=== PATIENT | male | born 1965 | race Caucasian/White ===

== ENCOUNTER 2016-08-19 08:34 | Emergency (ER) | payer SELFPAY ==
[~2016-08-19] VITALS: Ht 172.7 cm; Wt 70.0 kg
[~2016-08-19 08:34] MED LIST: FLEXERIL PO; NAPROSYN500 MG PO
[2016-08-19] MEDS ORDERED: MOTRIN800 MG PO (09:10)
[2016-08-19] MEDS ORDERED: LORTAB 5-325 MG1 TAB PO (09:10)
[2016-08-19] MEDS ORDERED: PENICILLN VK500 MG PO (09:10)
[2016-08-19 09:14] VITALS: BP 151/96
== END 2016-08-19 09:18 | disposition home or self-care (01) | DRG 159 ==
LOC: ED 08:34
DX: K08.89 Other specified disorders of teeth and supporting structures (principal); K02.9 Dental caries, unspecified; S02.5XXA Fracture of tooth (traumatic), initial encounter for closed fracture

== ENCOUNTER 2016-11-23 08:43 | Emergency (ER) | payer OTHER ==
[~2016-11-23] VITALS: Ht 172.7 cm; Wt 72.0 kg
[~2016-11-23 08:43] MED LIST changes: +LORTAB 5-325 MG1 TAB PO; +MOTRIN800 MG PO; +PENICILLN VK500 MG PO
[2016-11-23 09:26] VITALS: BP 149/78
[2016-11-23] MEDS ORDERED: PENICILLN VK500 MG PO (09:31)
[2016-11-23] MEDS ORDERED: LORTAB 5-325 MG1 TAB PO (09:31)
== END 2016-11-23 09:39 | disposition home or self-care (01) | DRG 159 ==
LOC: ED 08:43
DX: K08.89 Other specified disorders of teeth and supporting structures (principal)

== ENCOUNTER 2017-02-08 20:51 | Emergency (ER) | payer OTHER ==
[~2017-02-08] VITALS: Ht 172.7 cm; Wt 68.0 kg
[2017-02-08] MEDS ORDERED: BC FAST PAI1 PO (21:00)
[2017-02-08] MEDS ORDERED: AMOXICILLIN500 MG PO (21:25)
[2017-02-08] MEDS ORDERED: ULTRAM50 M1 PO (21:25)
[2017-02-08 21:39] VITALS: BP 124/89
== END 2017-02-08 21:39 | disposition home or self-care (01) | DRG 159 ==
LOC: ED 20:51
DX: K04.7 Periapical abscess without sinus (principal); F17.210 Nicotine dependence, cigarettes, uncomplicated; K02.9 Dental caries, unspecified; K08.89 Other specified disorders of teeth and supporting structures; S02.5XXA Fracture of tooth (traumatic), initial encounter for closed fracture